=== PATIENT | male | born 1940 | race Caucasian/White ===

== ENCOUNTER 2016-06-13 14:52 | Outpatient (CLI) | payer MEDICARE, OTHER | END 2016-06-13 14:53 | disposition home or self-care (01) | DX: G47.33 Obstructive sleep apnea (adult) (pediatric) (principal) | CPT/HCPCS: 99214; G0463 ==

== ENCOUNTER 2017-01-17 10:51 | Outpatient (CLI) | payer MEDICARE, OTHER ==
--- NOTE | 2017-01-17 16:38 | XRAY Report ---
THREE VIEW LEFT FOOT: 01/17/2017 CLINICAL INDICATION: Pain. AP, lateral, oblique views of the left foot demonstrate osteoarthritis of the talonavicular joint and interphalangeal joints. There is no evidence of acute fracture or dislocation. No radiopaque forei gn body is seen in the soft tissues. IMPRESSION: OSTEOARTHRITIS. JOB #: [id number] EXT JOB #:[id number]
--- NOTE | 2017-01-17 16:40 | XRAY Report ---
THREE VIEW LEFT ANKLE: 01/17/2017 CLINICAL INDICATION: Pain. AP, lateral, oblique views of the left ankle demonstrate mild osteoarthritis. There is no evidence o f acute fracture or dislocation. Small plantar calcaneal spur is present. No effusion is seen. IMPRESSION: MILD OSTEOARTHRITIS. JOB #: [id number] EXT JOB #:[id number]
== END 2017-01-17 10:52 | disposition home or self-care (01) ==
LOC: DI.N 10:51
PROVIDERS: ATTEND Physician Assistant
DX: M25.572 Pain in left ankle and joints of left foot (principal); M19.072 Primary osteoarthritis, left ankle and foot

== ENCOUNTER 2017-05-07 08:16 | Day surgery (SDC) | payer MEDICARE, OTHER ==
[2017-05-07] MEDS ORDERED: LACTATED RINGERS 1,000 ML IV ONE (08:41)
[2017-05-07] MEDS ORDERED: MIDAZOLAM 2 MG/2 ML VIAL IVP ONE (09:32)
[2017-05-07] MEDS ORDERED: fentaNYL 100 MCG/2 ML VIAL IVP ONE (09:32)
[2017-05-07 11:06] VITALS: BP 110/67
== END 2017-05-07 08:17 | disposition home or self-care (01) ==
LOC: SDS 08:16
PROVIDERS: ATTEND Surgery
PROC: 0DBH8ZX Excision of Cecum, Via Natural or Artificial Opening Endoscopic, Diagnostic (ICD-10-PCS; principal; 2017-05-07 09:30)
PROC: 0DB58ZX Excision of Esophagus, Via Natural or Artificial Opening Endoscopic, Diagnostic (ICD-10-PCS; 2017-05-07 09:30)
DX: Z12.11 Encounter for screening for malignant neoplasm of colon (principal); D12.0 Benign neoplasm of cecum; K57.30 Diverticulosis of large intestine without perforation or abscess without bleeding; K22.70 Barrett's esophagus without dysplasia; K44.9 Diaphragmatic hernia without obstruction or gangrene; Z80.0 Family history of malignant neoplasm of digestive organs
CPT/HCPCS: 43239; 45380; J7120

== ENCOUNTER 2017-07-05 15:12 | Outpatient (CLI) | payer MEDICARE, OTHER ==
--- NOTE | 2017-07-05 17:36 | CT Report ---
CT BRAIN WITHOUT CONTRAST: 07/05/2017 CLINICAL INDICATION: Contusion. TECHNIQUE: Axial CT images of the brain were obtained without intravenous contrast. In accordance with CT protocol optimization, one or more of the following dose reduction techniques were utilized for this exam: Automated exposure control, adjustment of mA and/or KV based on patient size, or use of iterative reconstructive technique. No previous CT is available for comparison. FINDINGS: The ventricles and sulci are normal in size, shape and configuration. The basilar cisterns are patent. There is no evidence of hemorrhage, mass effect, or midline shift. No calvarial fracture is present. There is chronic sinus disease in the ethmoid air cells bilaterally. IMPRESSION: CHRONIC SINUS DISEASE. OTHERWISE, NORMAL CT OF THE BRAIN WITHOUT CONTRAST. TD: 07/05/2017 17:22
== END 2017-07-05 15:13 | disposition home or self-care (01) ==
LOC: DI 15:12
PROVIDERS: ATTEND Specialist
DX: S00.93XA Contusion of unspecified part of head, initial encounter (principal); J32.2 Chronic ethmoidal sinusitis
CPT/HCPCS: 70450

== ENCOUNTER 2017-07-10 13:43 | Outpatient (CLI) | payer MEDICARE, OTHER | END 2017-07-10 13:44 | disposition home or self-care (01) | LOC: SC 13:43 | PROVIDERS: ATTEND Nurse Practitioner Family | DX: G47.33 Obstructive sleep apnea (adult) (pediatric) (principal) | CPT/HCPCS: 99214; G0463; 99212 ==

== ENCOUNTER 2018-03-07 15:16 | Outpatient (CLI) | payer MEDICARE, OTHER ==
--- NOTE | 2018-03-07 16:22 | XRAY Report ---
Reason: GENERALIZED HYPERHIDROSIS,OTHER FATIGUE Procedure Date: 03/07/2018 Accession Number: [id number] / [id number] Procedure: XR - Chest 2 View X-Ray CPT Code: 60573 FULL RESULT: EXAM: CHEST RADIOGRAPHY EXAM DATE: 03/07/2018 03:39 PM. CLINICAL HISTORY: Generalized hyperhidrosis, other fatigue. COMPARISON: X-ray chest PA and lateral 12/08/2011 1:56 PM. TECHNIQUE: 2 views. FINDINGS: Lungs/Pleura: No focal opacities evident. Subtle blunting of the right costophrenic angle in keeping with a new trace pleural effusion on the right. No pneumothorax. Normal volumes. Mediastinum: Heart and mediastinal contours are unremarkable. Other: Stable mild anterior loss of height at multiple vertebral bodies. IMPRESSION: New trace pleural effusion on the right. RADIA
== END 2018-03-07 15:17 | disposition home or self-care (01) ==
LOC: DI 15:16
PROVIDERS: ATTEND Specialist
DX: J90 Pleural effusion, not elsewhere classified (principal); R61 Generalized hyperhidrosis; R53.83 Other fatigue
CPT/HCPCS: 71046

== ENCOUNTER 2018-08-04 15:40 | Outpatient (CLI) | payer MEDICARE, OTHER | END 2018-08-04 15:41 | disposition home or self-care (01) | LOC: SC 15:40 | PROVIDERS: ATTEND Nurse Practitioner Family | DX: G47.33 Obstructive sleep apnea (adult) (pediatric) (principal) | CPT/HCPCS: 99214; G0463; 99212 ==

== ENCOUNTER 2019-10-21 11:47 | Outpatient (CLI) | payer MEDICARE, OTHER ==
--- NOTE | 2019-10-22 09:59 | XRAY Report ---
Reason: RIGHT SHOULDER PAIN Procedure Date: 10/21/2019 Accession Number: [id number] / [id number] Procedure: XR - Shoulder 3 View RT CPT Code: Final Report FULL RESULT: EXAM: RIGHT SHOULDER RADIOGRAPHY 3 VIEWS EXAM DATE: 10/21/2019. CLINICAL HISTORY: Chronic right shoulder pain for 4 months. Limited range of motion. COMPARISON: None. TECHNIQUE: AP, Grashey and scapular Y views. FINDINGS: Bones: No fracture or other acute abnormality. Mild well-defined irregularity of the greater tuberosity. Small subacromial spur. Joints: No subluxation. Mild narrowing of the acromioclavicular joint. Glenohumeral joint appears normal in width. Soft tissues: The visualized hemithorax is unremarkable. No soft tissue swelling. IMPRESSION: No acute abnormality. Mild well-defined irregularity of the greater tuberosity, this could be degenerative or from remote trauma. Mild degenerative changes of the acromioclavicular joint. Small subacromial spur. RADIA
== END 2019-10-21 11:48 | disposition home or self-care (01) ==
LOC: DI 11:47
PROVIDERS: ATTEND Family Medicine
DX: M19.011 Primary osteoarthritis, right shoulder (principal); M25.711 Osteophyte, right shoulder

== ENCOUNTER 2020-05-17 09:04 | Outpatient (CLI) | payer MEDICARE, OTHER ==
--- NOTE | 2020-05-17 12:54 | SLEEP CARE CONSULTATION ---
Information from patient questionnaire entered by Jimena Maciel. I have reviewed and concur with the information entered by Jimena Maciel. This document represents the service I personally performed and the decisions made by me, Richard Duran MD, [facility]. History of Present Illness Service Date and Time: 05/17/2020903 Previous diagnosis: Mild, Obstructive Sleep Apnea-Hypopnea Syndrome AHI: 11.6 (in 2009)(45.5 in 2008) Reason for follow up: annual (last seen 07/2018) Equipment type: CPAP Equipment obtained from: [employer] Mask style: Nasal pillows Prior sleep studies: Yes Year and Where: 2008 and 2009 - [facility] Sleep Type of Sleep Study: Polysomnography HPI additional information: hypopnea syndrome and returns today for annual follow up of CPAP therapy. [employer] is still his durable medical supplier. He now wears Respironics DreamWear nasal pillows. He continues to use the device nightly and all through the night. He used it 180 out of the past 180 nights averaging 8.2 hours a night). He complains of no particular problem with the device such as soreness on the face, dry nose, epistaxis, nasal congestion or headache. He thinks that the pressure of 12 - 15 cmH2O is alright. On the CPAP device he notices improvement in his sleep quality, and that he wakes up feeling fresher in the morning and more awake/alert during the day. residual AHI today is 7.1 (was 4.7 two years ago). Large leak drops from 10 minutes a night. The 90th percentile pressure is 14.4 cmH2O. His [place] Sleepiness Scale is 4. CPAP Compliance Data - Data Reviewed with Patient Average duration of nightly device use: 8 hr 14 min Compliance rate %: 100 (180 days) Current pressure setting (cmH2O): 12-15 Humidity settin Heated hose settin Average residual AHI: 7.1 Average large leak: 10 min 32 sec Subjective Current pressure setting perceived as: comfortable Initial [place] Sleepiness Scale score: 16 (in 2008) Current [place] Sleepiness Scale score: 4 Allergies and Home Medications Drug allergies reviewed: Yes Home medication list reviewed: Yes Review of Systems Review of systems same as previous: Yes Physical Exam Vital signs obtained and entered by: To minimize the risk of COVID-19 exposure, detailed exam was not performed. Height: 5 ft 9 in Weight: 205 lb Body Mass Index: 30.2 BMI Classification: Obese Impression and Plan IMPRESSION: 1. Obstructive Sleep Apnea-Hypopnea Syndrome, mild, with the patient continuing to do very well on nasal CPAP therapy. He has good treatment compliance. The current pressure of 10 cmH2O appears slightly ineffective but comfortable. I will raise the pressure range a little. He will also need a new durable medical supplier. PLAN: 1. Prescription made for CPAP supplies. 2. AutoCPAP raised to 13 17 cmH2O. 3. Try to lose weight. 4. Return in one year for follow up or earlier if there is any problem with the treatment. Visit Type: In Office Time Spent with Patient (minutes): 15 Provider Statement: I spent 100% of the Face to Face Visit with the patient with greater than 50% spent counseling the patient and coordination of care.
== END 2020-05-17 09:05 | disposition home or self-care (01) ==
LOC: SC 09:04
PROVIDERS: ATTEND Internal Medicine Pulmonary Disease
DX: G47.33 Obstructive sleep apnea (adult) (pediatric) (principal); E66.9 Obesity, unspecified; Z68.30 Body mass index [BMI] 30.0-30.9, adult
CPT/HCPCS: 99213; G0463; 99212

== ENCOUNTER 2020-09-22 12:44 | Outpatient (CLI) | payer MEDICARE, OTHER ==
--- NOTE | 2020-09-22 17:27 | MRI Report ---
PROCEDURE: Brain W/O INDICATIONS: PERSISTANT POSITIONAL VERTIGO TECHNIQUE: Noncontrast axial T1 spin echo, axial T2 fast spin echo, sagittal and axial FLAIR, coronal T2 fast sp in echo, axial gradient echo, axial diffusion and ADC through the brain. COMPARISON: None. FINDINGS: Image quality: Degraded by motion artifact.. CSF Spaces: Basal cisterns are patent. No extra-axial fluid collections. Ventricles are normal in size and shape. Brain: No intracranial masses or hemorrhage. Diffuse, scattered nonspecific white matter signal silva ges, statistically represent chronic microvascular ischemic disease although differential includes ne urodegenerative, infectious/inflammatory, demyelinating etiologies among other possibilities. There is apparent signal abnormality within the medulla on sagittal T1-weighted pulse sequence only, which is probably artifact given no other signal abnormality seen on corroborative pulse sequences. Orourke/white matter interface is normal. Diffusion-weighted images demonstrate no acute ischemic ins ult. No chronic ischemic insults. Normal intravascular flow voids are present. Skull and face: Calvarium has normal marrow signal. Orbits appear normal. Sinuses: Sinuses and mastoids are clear. IMPRESSION: Diffuse, scattered nonspecific white matter signal changes, statistically represent chronic microvasc ular ischemic disease although differential includes neurodegenerative, infectious/inflammatory, demy elinating etiologies among other possibilities. Apparent signal abnormality involving the medulla however seen on one pulse sequence only and could b e artifact. The exact etiology is unknown. If clinically indicated, further evaluation with a contras t-enhanced brain MRI could be performed. Reviewed by: Hasmukh Hensley MD on 09/22/2020 5:25 PM PDT Approved by: Hasmukh Hensley MD on 09/22/2020 5:25 PM PDT Station ID: [id number]
== END 2020-09-22 12:45 | disposition home or self-care (01) ==
LOC: DI 12:44
PROVIDERS: ATTEND Family Medicine
DX: H81.13 Benign paroxysmal vertigo, bilateral (principal)

== ENCOUNTER 2021-02-07 15:09 | Outpatient (CLI) | payer MEDICARE, OTHER ==
--- NOTE | 2021-02-08 08:19 | XRAY Report ---
PROCEDURE: Tib/Fib RT INDICATIONS: Right lower leg pain TECHNIQUE: 2 views of the tibia and fibula were acquired. COMPARISON: None FINDINGS: Bones: Expected appearance of medial knee hemiarthroplasty. No evidence of hardware failure or loose yelena. No fractures or dislocations. No suspicious bony lesions. Soft tissues: No suspicious soft tissue calcifications or masses. IMPRESSION: No evidence of acute bony abnormality of the right tibia and fibula. Reviewed by: Evans Orozco MD on 02/08/2021 8:17 AM PDT Approved by: Eavns Orozco MD on 02/08/2021 8:17 AM PDT Station ID: [id number]
--- NOTE | 2021-02-08 09:45 | XRAY Report ---
PROCEDURE: Finger(s) RT INDICATIONS: Right thumb pain TECHNIQUE: AP hand, 2 views of the right thumb acquired. COMPARISON: None FINDINGS: Bones: No fractures or dislocations. No suspicious bony lesions. Severe degenerative arthritis invo lving the thumb IP joint. Remote resection of the first carpal bone with small residual bone fragment s. Expected appearance. Soft tissues: No suspicious soft tissue calcifications. IMPRESSION: 1. Expected appearance post remote resection of right trapezium. 2. 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 Reviewed by: Evans Orozco MD on 02/08/2021 9:43 AM PDT Approved by: Evans Orozco MD on 02/08/2021 9:43 AM PDT Station ID: [id number]
== END 2021-02-07 15:15 ==
LOC: DI.N 15:09
PROVIDERS: ATTEND Physician Assistant Medical
DX: M19.041 Primary osteoarthritis, right hand (principal); M79.604 Pain in right leg

== ENCOUNTER 2021-04-19 09:51 | Outpatient (CLI) | payer MEDICARE, OTHER ==
--- NOTE | 2021-04-19 16:17 | XRAY Report ---
PROCEDURE: Chest 2 View X-Ray INDICATIONS: SOB AT REST, DIZZINESS TECHNIQUE: 2 view(s) of the chest. COMPARISON: Chest x-ray dated 03/07/2018 FINDINGS: Surgical changes and devices: None. Lungs and pleura: No pleural effusions or pneumothorax. Lungs are clear. Mediastinum: Mediastinal contours are normal. Heart size is normal. Bones and chest wall: No suspicious bony abnormalities. Soft tissues appear unremarkable. IMPRESSION: No acute process. Reviewed by: Wlimar Castellanos MD on 04/19/2021 4:16 PM PST Approved by: Wilmar Castellanos MD on 04/19/2021 4:16 PM PST Station ID: [id number]
== END 2021-04-19 09:52 | disposition home or self-care (01) ==
LOC: DI.N 09:51
PROVIDERS: ATTEND Physician Assistant
DX: R06.2 Wheezing (principal); R42 Dizziness and giddiness

== ENCOUNTER 2021-06-13 08:31 | Outpatient (CLI) | payer MEDICARE, OTHER ==
[2021-06-13 09:23] LABS: CREATININE 0.8 mg/dL (0.6-1.2)
[2021-06-13] MEDS ORDERED: GADOBUTROL 10 MMOL/10 ML VIAL ONE (09:46)
[2021-06-13] MEDS ORDERED: GADOBUTROL 10 MMOL/10 ML VIAL IVP ONE (10:23)
--- NOTE | 2021-06-13 18:00 | MRI Report ---
PROCEDURE: IACS W/WO INDICATIONS: VERTIGO CONTRAST: IV CONTRAST: Gadavist ml: 9.5 TECHNIQUE: Noncontrast sagittal T1 spin echo, axial FLAIR, axial gradient echo, axial diffusion and ADC through the brain. Axial thin-slice 3D CISS, coronal balanced GE, axial T1 spin echo with fat saturation thr ough the internal auditory canals. After the administration of contrast, thin slice axial and golden l T1 spin echo with fat saturation through the internal auditory canals, and axial T1 spin echo with fat saturation through the brain. COMPARISON: Prior brain MRI, 09/22/2020 FINDINGS: Image quality: Motion artifact is noted. Cerebellopontine angles: No cerebellopontine angle masses. Inner ear structures appear normally for med. No suspicious enhancement in the internal auditory canal or along the course of the 7th cranial nerve. CSF spaces: Ventricles are normal in size and shape. No extra-axial fluid collections. Basal ciste rns are patent. Brain: No intracranial bleeds or mass effects. Orourke-white matter interface is intact. No abnormal intracranial enhancement. Diffusion weighted images demonstrate no acute ischemic insults. Brainste m appears normal. Normal intravascular flow voids are present. Age-appropriate brain parenchymal vo lume loss and chronic small vessel ischemic change can be seen. Skull and face: Calvarial marrow signal is normal. Orbits appear normal. Sinuses: Sinuses and mastoids are clear. IMPRESSION: No imaging explanation is found for the patient's presenting symptoms. Specifically, no findings of m asses or abnormal enhancement can be found within the internal auditory canals or the cerebellopontin e angle cisterns. Age-appropriate brain parenchymal volume loss and chronic small vessel ischemic change can be seen. No findings of acute or subacute infarction are seen. Reviewed by: Navin Peres MD on 06/13/2021 4:58 PM [place] Approved by: Navin Peres MD on 06/13/2021 4:58 PM [place] Station ID: [id number]
== END 2021-06-13 08:32 | disposition home or self-care (01) ==
LOC: DI 08:31
PROVIDERS: ATTEND Psychiatry & Neurology Neurology
DX: R42 Dizziness and giddiness (principal); Z51.81 Encounter for therapeutic drug level monitoring; G31.1 Senile degeneration of brain, not elsewhere classified; I67.82 Cerebral ischemia
CPT/HCPCS: 36415; 70543; 82565; A9585

== ENCOUNTER 2021-07-20 09:14 | Outpatient (CLI) | payer MEDICARE, OTHER | END 2021-07-20 09:15 | disposition home or self-care (01) | LOC: RT 09:14 | PROVIDERS: ATTEND Physician Assistant | DX: R06.00 Dyspnea, unspecified (principal); R06.2 Wheezing | CPT/HCPCS: 94010 ==

== ENCOUNTER 2021-12-25 12:53 | Outpatient (CLI) | payer MEDICARE, OTHER ==
[2021-12-25 13:48] VITALS: BP 151/90
--- NOTE | 2021-12-25 13:48 | SLEEP CARE CONSULTATION ---
Information from patient questionnaire entered by Leti Moss MA. I have reviewed and concur with the information entered by Leti Moss MA. This document represents the service I personally performed and the decisions made by me, Richard Duran MD, [facility]. History of Present Illness Service Date and Time: 12/25/2021 1253 Previous diagnosis: Mild, Obstructive Sleep Apnea-Hypopnea Syndrome AHI: 11.6 (in 2009)(45.5 in 2008) Reason for follow up: annual (LAST SEEN 04/2020, STEPHANY, BLANCO 04/12/2016, NEW RX? ) Equipment type: CPAP Equipment obtained from: [employer] Mask style: Nasal pillows Prior sleep studies: Yes Year and Where: 2008 and 2009 - [facility] Sleep Type of Sleep Study: Polysomnography HPI additional information: Mr. Whitaker was diagnosed to have mild (was severe) obstructive sleep apnea- hypopnea syndrome and returns today for annual follow up of CPAP therapy. [employer] was his durable medical supplier. Now he gets his supplies from [employer]. He wears Respir[employer] DreamWear nasal pillows. He continues to use the device nightly and all through the night. He used it 360 out of the past 365 nights averaging 8.2 hours a night). He complains of no particular problem with the device such as soreness on the face, dry nose, epistaxis, nasal congestion or headache. He thinks that the pressure of 13 -17 cmH2O is alright. On the CPAP device he notices improvement in his sleep qualit y, and that he wakes up feeling fresher in the morning and more awake/alert during the day. Residual AHI today is 6.0 (was 7.1 last year). Large leak drops from 15 minutes a night. The 90th percentile pressure is 15 cmH2O. His [place] Sleepiness Scale is 7. Sleep Study - Results Type of Sleep Study: Polysomnography Prior sleep studies: Yes Year and Where: 2008 and 2009 - [facility] Sleep CPAP Compliance Data - Data Reviewed with Patient Average duration of nightly device use: 7 HOURS 25 MINUTES Compliance rate %: 95.6 (09/23/21-12/21/21) Current pressure setting (cmH2O): 13-17 Humidity settin Heated hose settin Average residual AHI: 6.0 Average large leak: 11 MINUTES 42 SECONDS Subjective Initial [place] Sleepiness Scale score: 16 (in 2009) Current [place] Sleepiness Scale score: 7 (12/25/2021) Allergies and Home Medications Known drug allergies: Yes (PNC, LATEX ADHESIVE, ) Drug allergies reviewed: Yes Home medication list reviewed: Yes Allergy and home medication list: Allergies Penicillins Allergy (Intermediate, Verified 05/06/17 13:39) Swelling Bee stings Allergy (Intermediate, Uncoded 05/06/17 13:39) swelling Review of Systems Review of systems same as previous: Yes Physical Exam Vital signs obtained and entered by: Mary Beth MOSS CMA AAPA Blood Pressure: 151/90 (RIGHT, PULSE 68, RESP 18) Heart Rate: 94 O2 Saturation: 96 (N95) Height: 5 ft 9 in Weight: 207 lb Body Mass Index: 30.5 BMI Classification: Obese Impression and Plan IMPRESSION: 1. Obstructive Sleep Apnea-Hypopnea Syndrome, mild, with the patient continuing to do very well on nasal CPAP therapy. He has good treatment compliance. The current pressure appears slightly ineffective but comfortable. I will leave the pressure range the same. Because the CPAP is now older than the useful life of 5 years, I will order the patient a new one and make it an autoCPAP set between 13 and 17 cmH2O. PLAN: 1. Prescription made for an autoCPAP, heated humidifier, and related supplies. 2. Try to lose weight. 3. Return for follow up after one month of using the CPAP. Counseling Topics: Weight control Follow up with Sleep Care in: 3 months Visit Type: In Office Time Spent with Patient (minutes): 20 Provider Statement: I spent 100% of the Face to Face Visit with the patient with greater than 50% spent counseling the patient and coordination of care.
== END 2021-12-25 12:54 | disposition home or self-care (01) ==
LOC: SC 12:53
PROVIDERS: ATTEND Internal Medicine Pulmonary Disease
DX: G47.33 Obstructive sleep apnea (adult) (pediatric) (principal); E66.9 Obesity, unspecified; Z68.30 Body mass index [BMI] 30.0-30.9, adult
CPT/HCPCS: 99213; G0463; 99212

== ENCOUNTER 2022-06-18 12:53 | Outpatient (CLI) | payer MEDICARE, OTHER ==
[2022-06-18 18:04] VITALS: BP 118/70
--- NOTE | 2022-06-18 18:04 | SLEEP CARE CONSULTATION ---
Information from patient questionnaire entered by Susu Dela Cruz. I have reviewed and concur with the information entered by Susu Dela Cruz. This document represents the service I personally performed and the decisions made by me, Richard Duran MD, [facility]. History of Present Illness Service Date and Time: 06/18/2022 1253 Previous diagnosis: Mild, Obstructive Sleep Apnea-Hypopnea Syndrome AHI: 11.6 (in 2009)(45.5 in 2008) Reason for follow up: annual (LAST SEEN 05/17/2020) Equipment type: CPAP (NOEL) Equipment obtained from: [employer] Mask style: Nasal pillows Prior sleep studies: Yes Year and Where: 2008 and 2009 - [facility] Sleep Type of Sleep Study: Polysomnography HPI additional information: Mr. Whitaker was diagnosed to have mild (was severe) obstructive sleep apnea- hypopnea syndrome and returns today for annual follow up of CPAP therapy. [employer] was his durable medical supplier. Now he gets his supplies from [employer]. He wears Respironics DreamWear nasal pillows. He continues to use the Nitesh Respironics DreamStation 2 autoCPAP nightly and all through the night (the machine is a replacement to his original Nitesh Respironics DreamStation 1). He used it 176 out of the past 180 nights averaging 8 hours a night). He complains of no particular problem with the device such as soreness on the face, dry nose, epistaxis, nasal congestion or headache. He thinks that the pressure of 13 -17 cmH2O is alright. On the CPAP device he notices improvement in his sleep quality, and that he wakes up feeling fresher in the morning and more awake/alert during the day. Residual AHI today is 4.9 (was 6.0 last year). Large leak is 3 minutes a night. The 90th percentile pressure is 15 cmH2O. His [place] Sleepiness Scale is 5. Sleep Study - Results Type of Sleep Study: Polysomnography Prior sleep studies: Yes Year and Where: 2008 and 2009 - [facility] Sleep CPAP Compliance Data - Data Reviewed with Patient Average duration of nightly device use: 7HRS 59MIN 13SEC Compliance rate %: 98.9 (12/16/2021-06/13/22) Current pressure setting (cmH2O): 13-17 Average residual AHI: 4.9 Subjective Initial [place] Sleepiness Scale score: 16 (in 2009) Current [place] Sleepiness Scale score: 5 (06/18/22) Allergies and Home Medications Drug allergies reviewed: Yes Home medication list reviewed: Yes Allergy and home medication list: Allergies Penicillins Allergy (Intermediate, Verified 05/06/17 13:39) Swelling Bee stings Allergy (Intermediate, Uncoded 05/06/17 13:39) swelling Review of Systems Review of systems same as previous: Yes Physical Exam Vital signs obtained and entered by: SUSU Jaramillo MA Blood Pressure: 118/70 (LEFT ARM) Cuff size: regular Heart Rate: 67 O2 Saturation: 95 Height: 5 ft 9 in Weight: 221 lb 9.6 oz Body Mass Index: 32.7 BMI Classification: Obese Impression and Plan IMPRESSION: 1. Obstructive Sleep Apnea-Hypopnea Syndrome, mild, with the patient continuing to do very well on nasal CPAP therapy. He has good treatment compliance. The current pressure appears effective and comfortable. I will leave the pressure range the same. His old Nitesh Respironics DreamStation 1 is now older than 5 years and he is eligible for a new one but because he just got the Nitesh Respironics DreamStation 2, he would like to wait. PLAN: 1. Continue with autoCPAP set at 13 17 cmH2O. 2. Turn up the humidity to maximum if he still has dry mouth. 3. Return for follow up in a year or earlier if there is any problem. Follow up with Sleep Care in: 1 year Visit Type: In Office Time Spent with Patient (minutes): 15 Provider Statement: I spent 100% of the Face to Face Visit with the patient with greater than 50% spent counseling the patient and coordination of care.
== END 2022-06-18 12:54 | disposition home or self-care (01) ==
LOC: SC 12:53
PROVIDERS: ATTEND Internal Medicine Pulmonary Disease
DX: G47.33 Obstructive sleep apnea (adult) (pediatric) (principal); E66.9 Obesity, unspecified; Z68.32 Body mass index [BMI] 32.0-32.9, adult
CPT/HCPCS: 99212; G0463

== ENCOUNTER 2022-07-31 12:27 | Outpatient (CLI) | payer MEDICARE, OTHER ==
--- NOTE | 2022-07-31 16:22 | Ultrasound Report ---
PROCEDURE: Bladder INDICATIONS: INCOMPLETE BLADDER EMPTYING TECHNIQUE: Real-time scanning was performed of the kidneys and bladder, with image documentation. COMPARISON: None FINDINGS: Bladder: Pre-void bladder volume is 134.9 mL. Post-void residual is 20.4 mL. Pre-void images demon strate no intraluminal masses or stones. On pre-void images, bilateral ureteral jets are noted with color Doppler interrogation. (Of note, ureteral jets may not be detectable in up to 25% of cases due to insufficient differences in specific gravity between ureteral and bladder urine). Prostate measures 5.2 x 5.3 x 5.1 cm Miscellaneous: No free pelvic fluid. IMPRESSION: 1. Enlarged prostate. 2. Mild post void residual. Reviewed by: Evans Orozco MD on 07/31/2022 4:21 PM PST Approved by: Evans Orozco MD on 07/31/2022 4:21 PM PST Station ID: [id number]
== END 2022-07-31 12:28 | disposition home or self-care (01) ==
LOC: DI 12:27
PROVIDERS: ATTEND Physician Assistant
DX: R39.14 Feeling of incomplete bladder emptying (principal); N40.1 Benign prostatic hyperplasia with lower urinary tract symptoms

== ENCOUNTER 2023-06-17 13:58 | Outpatient (CLI) | payer MEDICARE, OTHER ==
[2023-06-17 16:22] VITALS: BP 141/76; O2SAT 95
--- NOTE | 2023-06-17 16:22 | SLEEP CARE CONSULTATION ---
Information from patient questionnaire entered by Susu Dela Cruz. I have reviewed and concur with the information entered by Susu Dela Cruz. This document represents the service I personally performed and the decisions made by me, Richadr Duran MD, [facility]. History of Present Illness Service Date and Time: 06/17/2023 1358 Previous diagnosis: Mild, Obstructive Sleep Apnea-Hypopnea Syndrome AHI: 11.6 (in 2009)(45.5 in 2008) Reason for follow up: annual (LAST SEEN 05/2022) Equipment type: CPAP (NOEL) Equipment obtained from: [facility] Mask style: Nasal pillows Prior sleep studies: Yes Year and Where: 2008 and 2009 - [facility] Type of Sleep Study: Polysomnography HPI additional information: Mr. Whitaker was diagnosed to have mild (was severe) obstructive sleep apnea- hypopnea syndrome and returns today for annual follow up of CPAP therapy. [facility] was his durable medical supplier. Now he gets his supplies from [employer]. He wears Respironics DreamWear nasal pillows. He continues to use the Nitesh Respironics DreamStation 2 autoCPAP nightly and all through the night (the machine is a replacement to his original Nitesh Respironics DreamStation 1). He used it 352 out of the past 365 nights averaging 7.8 hours a night). He complains of no particular problem with the device such as soreness on the face, dry nose, epistaxis, nasal congestion or headache. He thinks that the pressure of 13 -17 cmH2O is alright. On the CPAP device he notices improvement in his sleep quality, and that he wakes up feeling fresher in the morning and more awake/alert during the day. Residual AHI today is 4.0 (was 4.9 last year). Large leak is 1 minute a night. The 90th percentile pressure is 15 cmH2O. His [place] Sleepiness Scale is 6. Sleep Study - Results Type of Sleep Study: Polysomnography Prior sleep studies: Yes Year and Where: 2008 and 2009 - [facility] CPAP Compliance Data - Data Reviewed with Patient Average duration of nightly device use: 7HRS 48MINS 2SECS Compliance rate %: 95.6 (06/13/22-06/12/23) Current pressure setting (cmH2O): 13-17 Average residual AHI: 4.0 Subjective Initial Sal[place] Sleepiness Scale score: 16 (in 2009) Current [place]ix Sleepiness Scale score: 6 (06/17/23) Allergies and Home Medications Drug allergies reviewed: Yes Home medication list reviewed: Yes Allergy and home medication list: Allergies Penicillins Allergy (Intermediate, Verified 06/13/23 17:06) Swelling Bee stings Allergy (Intermediate, Uncoded 06/13/23 17:06) swelling Review of Systems Review of systems same as previous: Yes Physical Exam Vital signs obtained and entered by: SUSU Jaramillo MA Blood Pressure: 141/76 (RIGHT ARM) Cuff size: regular Heart Rate: 74 O2 Saturation: 95 Height: 5 ft 9 in Weight: 215 lb 9.6 oz Body Mass Index: 31.8 BMI Classification: Obese Impression and Plan IMPRESSION: 1. Obstructive Sleep Apnea-Hypopnea Syndrome, mild, with the patient continuing to do very well on nasal CPAP therapy. He has good treatment compliance. The current pressure appears effective and comfortable. I will leave the pressure range the same. Because his original Nitesh Respironics DreamStation 1 is now older than the useful life of 5 years, I will order the patient a new one and make it a ResMed AirSense 11 set at 13 - 17 cmH2O. PLAN: 1. Continue with autoCPAP set at 13 17 cmH2O. 2. Prescription made for a new autoCPAP, heated humidifier, and related supplies. 3. Return for follow up in a year or earlier if there is any problem. Prescriptions: Auto CPAP Follow up with Sleep Care in: 1 year Visit Type: In Office Time Spent with Patient (minutes): 15 Provider Statement: I spent 100% of the Face to Face Visit with the patient with greater than 50% spent counseling the patient and coordination of care.
== END 2023-06-17 13:59 | disposition home or self-care (01) ==
LOC: SC 13:58
PROVIDERS: ATTEND Internal Medicine Pulmonary Disease
DX: G47.33 Obstructive sleep apnea (adult) (pediatric) (principal); E66.9 Obesity, unspecified; Z68.31 Body mass index [BMI] 31.0-31.9, adult
CPT/HCPCS: 99212; G0463

== ENCOUNTER 2023-12-16 12:44 | Outpatient (CLI) | payer MEDICARE, OTHER ==
--- NOTE | 2023-12-16 13:11 | SLEEP CARE CONSULTATION ---
Information from patient questionnaire entered by Cece Dela Cruz. I have reviewed and concur with the information entered by Cece Dela Cruz. This document represents the service I personally performed and the decisions made by me, Richard Duran MD, [facility]. History of Present Illness Service Date and Time: 12/16/2023 1244 Previous diagnosis: Mild, Obstructive Sleep Apnea-Hypopnea Syndrome AHI: 11.6 (in 2009)(45.5 in 2008) Reason for follow up: first compliance Equipment type: CPAP (NOEL) Equipment obtained from: [facility] Mask style: Nasal pillows Prior sleep studies: Yes Year and Where: 2008 and 2009 - [facility] Type of Sleep Study: Polysomnography HPI additional information: Mr. Whitaker was diagnosed to have mild (was severe) obstructive sleep apnea- hypopnea syndrome and returns today for annual follow up of CPAP therapy. He recently acquired a new ResMed AirSense 11 from [employer] [place]. He wears Respironics DreamWear nasal pillows. He continues to use the Nitesh Respironics DreamStation 2 autoCPAP nightly and all through the night (the machine is a replacement to his original Nitesh Respironics DreamStation 1). He used it 30 out of the past 30 nights averaging 8.3 hours a night). He complains of no particular problem with the device such as soreness on the face, dry nose, epistaxis, nasal congestion or headache. He thinks that the pressure of 13 -17 cmH2O is alright. On the CPAP device he notices improvement in his sleep quality, and that he wakes up feeling fresher in the morning and more awake/alert during the day. Residual AHI today is 2.0 (was 6.0 last year). Large leak is 15.2 L/minute. The 90th percentile pressure is 13.9 cmH2O. His [place] Sleepiness Scale is 7. Sleep Study - Results Type of Sleep Study: Polysomnography Prior sleep studies: Yes Year and Where: 2008 and 2009 - [facility] CPAP Compliance Data - Data Reviewed with Patient Average duration of nightly device use: 8HRS 22MINS Compliance rate %: 100 (11/12/23-12/11/23) Current pressure setting (cmH2O): 13-17 Average residual AHI: 2.0 Subjective Initial [place] Sleepiness Scale score: 16 (in 2008) Current [place] Sleepiness Scale score: 7 (12/16/23) Allergies and Home Medications Drug allergies reviewed: Yes Home medication list reviewed: Yes Allergy and home medication list: Allergies Penicillins Allergy (Intermediate, Verified 12/12/23 11:12) Swelling Bee stings Allergy (Intermediate, Uncoded 12/12/23 11:12) swelling Review of Systems Review of systems same as previous: Yes (NO CHANGE) Physical Exam Vital signs obtained and entered by: CECE Jaramillo MA Blood Pressure: 156/83 (LEFT ARM) Cuff size: regular Heart Rate: 70 O2 Saturation: 96 Height: 5 ft 9 in Weight: 210 lb 12.8 oz Body Mass Index: 31.1 BMI Classification: Obese Impression and Plan IMPRESSION: 1. Obstructive Sleep Apnea-Hypopnea Syndrome, mild, with the patient continuing to do very well on nasal CPAP therapy. He has good treatment compliance. The current pressure appears effective and comfortable. I will leave the pressure range the same. PLAN: 1. Continue with autoCPAP set at 13 17 cmH2O. 2. Turn up the humidity to maximum if he still has dry mouth. 3. Return for follow up in a year or earlier if there is any problem. Counseling Topics: Weight control Follow up with Sleep Care in: 1 year Visit Type: In Office Time Spent with Patient (minutes): 15 Provider Statement: I spent 100% of the Face to Face Visit with the patient with greater than 50% spent counseling the patient and coordination of care.
[2023-12-16 13:22] VITALS: BP 156/83; O2SAT 96
== END 2023-12-16 12:45 | disposition home or self-care (01) ==
LOC: SC 12:44
PROVIDERS: ATTEND Internal Medicine Pulmonary Disease
DX: G47.33 Obstructive sleep apnea (adult) (pediatric) (principal); E66.9 Obesity, unspecified; Z68.31 Body mass index [BMI] 31.0-31.9, adult
CPT/HCPCS: 99212; G0463

== ENCOUNTER 2024-02-17 08:00 | Outpatient (CLI) | payer MEDICARE, OTHER | END 2024-02-17 23:59 | disposition home or self-care (01) | LOC: LAB 08:00 | PROVIDERS: ATTEND Physician Assistant | DX: R07.0 Pain in throat (principal) | CPT/HCPCS: 87070 ==